=== PATIENT | male | born 1975 | race Caucasian/White ===

== ENCOUNTER 2017-04-20 06:50 | Day surgery (SDC) | payer OTHER ==
[~2017-04-20] VITALS: Ht 172.7 cm; Wt 136.1 kg
[~2017-04-20 06:50] MED LIST: AZITHROMYCIN250 MG PO; CITRUCEL500 MG PO; CO Q-10200 MG PO; DIOVAN80 MG PO; LISINOPRIL10 MG PO; MULTIVITAMINS1 EAC7 PO; OMEGA 3 1,0001 EACH; PRAVACHOL10 MG PO; PRAVACHOL20 MG PO; RED YEAST RICE600 M1; SYNTHROID200 MCG PO; TESTOSTERO200 MG/1 M IM; ULTRAM50 MG PO; VITAMIN B COMP1 EACH PO; VITAMIN D31000 UNIT; VITAMIN D5000 UNIT PO; ZYRTEC10 M3 PO
--- NOTE | 2017-04-20 09:32 | NUR ---
PT RETURNS TO DS FROM OR AND DATA ANALYSIS MANAGER REPORTS NO SEDATION WAS GIVEN. PT REQ DC HOME AND DENIES DESIRE FOR DRINK OR SNACK. MOTHER @ BS.
--- NOTE | 2017-04-20 09:48 | NUR ---
VERBAL DC INSTRUCTIONS GIVEN IN PRESENCE OF MOTHER AND THEY BOTH VERBALIZE UNDERSTANDING. RIGHT ARM PLACED IN SLING PER PT REQUEST. PT DRESSES HIMSELF WELL.
--- NOTE | 2017-04-20 10:21 | NUR ---
PT READY TO HAVE THE USE OF HIS HAND BACK. HE IS ALERT AND ORIENTED AND SUPPORTED BY HIS MOTHER GILES. VERY FRIENDLY, SEEMED COMFORTABLE. HAD MENTIONED THAT THEY HOPED WAS COMING BY, WHICH HAPPENED WHILE I WAS IN RM. WILL FOLLOW NEEDED
--- NOTE | 2017-04-25 07:19 | OR ---
[facility] [address] [place], [place] [address] Signed DATE OF PROCEDURE: 04/20/17 PREOPERATIVE DIAGNOSIS: Carpal tunnel syndrome, right. POSTOPERATIVE DIAGNOSIS: Carpal tunnel syndrome, right. PROCEDURE: Carpal tunnel release, right. SURGEON: Philip Almonte MD. ANESTHESIA: Artie block. COMPLICATIONS: None. SPECIMENS: None. TOURNIQUET TIME: About 25 minutes. PROCEDURE IN DETAIL The patient taken the operating room, placed on table supine position. After anesthesia was induced, the patient's hand was placed in the left hand schwartz. We then outlined a volar incision beginning at the distal wrist flexion crease extending distally for about a 1.5 cm in line with the anterior midaxial line of the 4th ray. Skin was divided sharply. Self-retaining retractor was placed. Subcutaneous tissue was gently swept aside. Transverse volar carpal ligament was identified and gently released. We then placed a Ragnell retractor under the distal flap and carried the dissection down into the mid palm under direct vision. We then placed the Ragnell onto the proximal flap and we then transferred the Ragnell under the proximal flap and again released the distal 3 cm of the antebrachial fascia completely releasing the severely compromised nerve. The wound was then gently irrigated and closed in a standard fashion. Sterile dressings were applied and the patient was awakened, taken to recovery room where arrived in stable condition. Counts were correct and antibiotic protocols were followed. MD BRENDA Urrutia/Juvencio /[id number] Electronically Signed By: PHILIP ALMONTE MD 04/25/17 0719 PATIENT NAME: JEFF JC OPERATIVE REPORT DATE OF : 73 PHYSICIAN: PHILIP ALMONTE MD REPORT #: [id number] REPORT IS CONFIDENTIAL AND NOT TO BE RELEASED WITHOUT AUTHORIZATION [address] [place], [place] [address] Signed cc: DIANE Romero Electronically Signed By: PHILIP ALMONTE MD 04/25/17 0719 PATIENT NAME: JEFF JC OPERATIVE REPORT DATE OF : 73 PHYSICIAN: PHILIP ALMONTE MD REPORT #: [id number] REPORT IS CONFIDENTIAL AND NOT TO BE RELEASED WITHOUT AUTHORIZATION
== END 2017-04-20 09:45 | disposition home or self-care (01) ==
LOC: OPS 06:50 → DS 06:50 → OPS 08:15
PROVIDERS: Orthopaedic Surgery
PROC: 01N50ZZ Release Median Nerve, Open Approach (ICD-10-PCS; principal; 2017-04-20 08:15)
DX: G56.01 Carpal tunnel syndrome, right upper limb (principal); E78.00 Pure hypercholesterolemia, unspecified; I10 Essential (primary) hypertension
CPT/HCPCS: 01810; J0690; J2704; J7120